=== PATIENT | male | born 1975 | race Caucasian/White ===

== ENCOUNTER 2016-06-22 03:11 | Emergency (ER) | payer OTHER ==
[2016-06-22] MEDS ORDERED: HYDROmorphONE/DILAUDID 1 MG/ML SYR IVP ONE (03:42)
[2016-06-22] MEDS ORDERED: ONDANSETRON 4 MG/2 ML VIAL IVP ONE (03:42)
[2016-06-22] MEDS ORDERED: NS 1,000 ML IV ONE (03:42)
[2016-06-22] MEDS ORDERED: ONDANSETRON 4 MG/2 ML VIAL ONE (03:43)
[2016-06-22] MEDS ORDERED: HYDROmorphONE/DILAUDID 1 MG/ML SYR ONE (03:43)
--- NOTE | 2016-06-22 03:45 | EDPHY ---
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 He complains of bilateral upper quadrant pain and epigastric pain that began yesterday then several episodes of vomiting tonight. Nonbloody no fever. No diarrhea. No chest pain or shortness of breath. He has had episodes of abdominal pain in the past without specific diagnosis. They have never been this bad however. REVIEW OF SYSTEMS: Constitutional: denies: chills, fever, recent illness, recent injury EENTM: denies: blurred vision, double vision, nose congestion Respiratory: denies: cough, shortness of breath Cardiac: denies: chest pain, irregular heart rate, lightheadedness, palpitations Gastrointestinal/Abdominal: See HPI Genitourinary: denies: dysuria, frequency, hematuria, pain Musculoskeletal: denies: joint pain, muscle pain Skin: denies: lesions, rash, jaundice, bruising Neurological: denies: headache, numbness, paresthesia, tingling, dizziness, weakness Hematologic/Lymphatic: denies: blood clots, easy bleeding, easy bruising Immunologic/allergic: denies: HIV/AIDS, transplant EXAM: GENERAL: Well-appearing, well-nourished and in no acute distress. HEAD: Atraumatic, normocephalic. EYES: Pupils equal round and reactive to light, extraocular movements intact, sclera anicteric, conjunctiva are normal. ENT: TMs normal, nares patent, oropharynx clear without exudates. Moist mucous membranes. NECK: Normal range of motion, supple without lymphadenopathy or JVD. LUNGS: Breath sounds clear to auscultation bilaterally and equal. No wheezes rales or rhonchi. HEART: Regular rate and rhythm without murmurs, rubs or gallops. ABDOMEN: Soft, nontender, normoactive bowel sounds. No guarding, no rebound. No masses appreciated. BACK: No CVA tenderness, no spinal tenderness, step-offs or deformities EXTREMITIES: Normal range of motion, no pitting or edema. No clubbing or cyanosis. NEUROLOGICAL: Cranial nerves II through XII grossly intact. Normal speech, normal gait. 5/5 strength, normal movement in all extremities, normal sensation PSYCH: Normal mood, normal affect. SKIN: Warm, dry, normal turgor, no visible rashes or lesions. Source: Patient Exam Limitations: No limitations - Medical/Surgical History Hx Asthma: No Hx Chronic Respiratory Disease: No Hx Diabetes: No Hx Cardiac Disease: No Hx Renal Disease: No Hx Cirrhosis: No Hx Alcoholism: No Hx HIV/AIDS: No Hx Splenectomy or Spleen Trauma: No Other PMH: chronic prostatitis - Family History Significant Family History: No pertinent family hx - Social History Smoking Status: Never smoked Alcohol Use: Sober Drug Use: None Constitutional: Initial Vital Signs Heart Rate 59 L 06/22/16 03:21 Respiratory Rate 18 06/22/16 03:21 Blood Pressure 117/60 06/22/16 03:21 O2 Sat (%) 98 06/22/16 03:21 O2 Delivery Mode Room Air O2 (L/minute) 2 Allergies/Adverse Reactions: No Known Allergies Allergy (Verified 06/22/16 03:24) Home Medications: Medication Instructions Recorded Aspirin EC [Aspirin EC 81 mg (*)] 81 mg PO DAILY 06/22/16 Multivitamins [Multivitamin (*)] 1 each PO DAILY 06/22/16 Zolpidem Tartrate [Ambien 10 mg] 10 mg PO HS PRN 06/22/16 Medical Decision Making - Diagnostics Imaging: Results: CT scan of the abdomen and pelvis was obtained. The results of the study are negative. The study was read by Dr. Breen. I viewed the images myself on the PACS system. ED Course/Re-evaluation: We discussed the abdominal CT and lab results. They are reassuring. The patient's abdominal exam remains nontender. He is eager to go home and declines further medication or observation. I will send him with take a Vicodin. He has Zofran at home already. He is happy with this plan and declines further workup or testing. We discussed indications for returning as well as recheck within 24 hours. Additional verbal discharge instructions given. Instructed to return within 24 hours if his pain does not resolve. Differential Diagnosis: Partial list of the Differential diagnosis considered include but were not limited to; gastroenteritis, peptic ulcer disease, biliary disease, liver disease, pancreatic disease, appendicitis, obstruction and although unlikely based on the history and physical exam, I also considered ischemia, volvulus, dissection, acute coronary disease. I discussed these differential diagnoses and the plan with the patient as well as the usual and expected course. The patient understands that the diagnosis is provisional and that in medicine we are not always correct and that further workup is often warranted. Usual and customary warnings were given. All of the patient's questions were answered. The patient was instructed to return to the emergency department should the symptoms at all worsen or return, otherwise to followup with the physician as we discussed. - Data Points Laboratory Results: Laboratory Results 06/22/16 03:55 06/22/16 03:55 Medications Given: Discontinued Medications Acetaminophen/Hydrocodone Bitart ([place] 5/325mg Prepack#6) 1 btl TAKEHOME EDNOW ONE Stop: 06/22/16 05:10 Last Admin: 06/22/16 05:41 Dose: 1 btl Hydromorphone HCl (Dilaudid) 1 mg IVP EDNOW ONE Stop: 06/22/16 03:43 Last Admin: 06/22/16 03:57 Dose: 1 mg Sodium Chloride (Ns) 1,000 mls @ 0 mls/hr IV ONCE ONE PRN Reason: Wide Open Stop: 06/22/16 03:43 Last Admin: 06/22/16 03:57 Dose: 1,000 mls Ketorolac Tromethamine (Toradol) 30 mg IVP EDNOW ONE Stop: 06/22/16 04:15 Last Admin: 06/22/16 04:26 Dose: 30 mg Ondansetron HCl (Zofran) 4 mg IVP EDNOW ONE Stop: 06/22/16 03:43 Last Admin: 06/22/16 03:58 Dose: 4 mg Departure - Departure Disposition: Home, Routine, Self-Care Clinical Impression: Abdominal pain Qualifiers: Abdominal location: generalized Qualifier Code: (R10.84) Generalized abdominal pain Condition: Fair Instructions: Hydrocodone/Acetaminophen (By mouth), Acute Abdominal Pain (ED) Referrals: Hemant Cano MD [Primary Care Provider] - As per Instructions
[2016-06-22 04:04] LABS: % IMMATURE GRANULYOCYTES 0.6 % (0.0-1.1); ADD DIFF? NO; ADD MORPH? NO; ADD SCAN? NO; ATYPICAL LYMPHOCYTE FLAG 10 (0-99); FRAGMENT RBC FLAG 0 (0-99); HEMATOCRIT 44.3 % (40.0-51.0); HEMOGLOBIN 15.7 g/dL (13.7-17.5); LEFT SHIFT FLG 0 (0-99); LIPEMIA HEMOLYSIS FLAG 90 (0-99); MEAN CELL HEMOGLOBIN 31.1 pg (27.9-34.1); MEAN CELL HEMOGLOBIN CONCENTR. 35.4 g/dL (32.4-36.7); MEAN CELL VOLUME 87.7 fL (81.5-99.8); MEAN PLATELET VOLUME 10.1 fL (8.7-11.7); PLATELET CLUMPS FLAG 0 (0-99); PLATELET COUNT 296 10^3/uL (150-400); RED BLOOD CELL COUNT 5.05 10^6/uL (4.40-6.38); RED CELL DISTRIBUTION WIDTH 12.8 % (11.5-15.2)
[2016-06-22] MEDS ORDERED: IOPAMIDOL (ISOVUE-300) 100 ML BTL IV ONE (04:06)
[2016-06-22 04:11] LABS: ALANINE AMINOTRANSFERASE 49 IU/L (21-72); ALBUMIN 4.7 g/dL (3.5-5.0); ALKALINE PHOSPHATASE 71 IU/L (38-126); ANION GAP 16 mEq/L (8-16); ASPARTATE AMINOTRANSFERASE 33 IU/L (17-59); BILIRUBIN,TOTAL 0.6 mg/dL (0.1-1.4); BILIRUBIN-CONJUGATED 0.2 mg/dL (0.0-0.5); BILIRUBIN-UNCONJUGATED 0.4 mg/dL (0.0-1.1); CALCIUM 9.7 mg/dL (8.5-10.4); CARBON DIOXIDE 24 mEq/l (22-31); CHLORIDE 103 mEq/L (97-110); CREATININE 0.9 mg/dL (0.7-1.3); GLOMERULAR FILTRATION RATE > 60; GLUCOSE 161 mg/dL (70-100); POTASSIUM 3.8 mEq/L (3.5-5.2); SODIUM 143 mEq/L (134-144); TOTAL PROTEIN 7.7 g/dL (6.3-8.2)
[2016-06-22] MEDS ORDERED: KETOROLAC 30 MG/1 ML SDV IVP ONE (04:14)
[2016-06-22] MEDS ORDERED: KETOROLAC 30 MG/1 ML SDV ONE (04:14)
[2016-06-22 04:28] VITALS: O2SAT 96
[2016-06-22] MEDS ORDERED: HYDROCOD/APAP 5/325 PREPACK#6 BTL TAKEHOME ONE (05:09)
[2016-06-22 05:23] LABS: COLOR PALE YELLOW; LEUKOCYTE ESTERASE,URINE NEGATIVE (NEGATIVE); NITRITE,URINE NEGATIVE (NEGATIVE)
[2016-06-22 06:00] VITALS: BP 118/68; PULSE 80; RESP 16; TEMP 97.9
--- NOTE | 2016-06-22 16:00 | CT ---
CT Scan of the Abdomen and Pelvis (With Contrast) Clinical Indications: Nausea and vomiting. Upper abdominal pain. Technique: 90 mL of Isovue 300 were given intravenously by machine power injection. Multidetector he lical CT imaging was performed from the diaphragm to the symphysis pubis. Dose reduction techniques w ere utilized. Findings: CT Abdomen: Lung bases are clear. Liver, spleen, pancreas, kidneys enhance normally. Gallbladder is n ormal by CT. Visualized bowel loops appear normal. No peritoneal free fluid or air. Dense calcifications are present within the lumen of the appendix compatible with appendicoliths. The appendix is also slightly distended at 11 mm size, without periappendiceal inflammatory changes. Min imal periappendiceal stranding is identified. Retrospective review of prior abdomen pelvis CT of 2006, demonstrates the presence of appendicoliths within the distal appendix, although the lum en of the appendix has progressively distended from prior study and the appendicoliths have matured i n their CT density and appearance. CT Pelvis: No free fluid or masses. Impression: Impression: 1. No etiology for a bladder abdominal pain is identified. 2. Progressive maturation and density of appendicoliths within the distal appendix, with increasing l uminal distention of the proximal appendix. Findings are of uncertain clinical significance. Surgical consultation may be of benefit in determining whether elective appendectomy is appropriate for this patient. Preliminary negative upper abdominal results called to Dr. Deng at 4:30 AM at the time of the exam ination. Follow-up call describing abnormal appendix findings with Ralph Chadwick PA-C, at 3:45 PM the same day.
--- NOTE | 2016-06-22 16:01 | EDPHY ---
ED Progress Note Narrative: I received a phone call from radiologist, Dr. Stefan Dumont today, 06/22/2016 at 3:55 p.m.. He was re-evaluating the patient's CT scan from last evening and noted multiple appendicoliths. I reviewed the patient's chart which indicates no focal tenderness. I have left the patient a voicemail after this conversation , recommend he contact the emergency department, 1) to see how he is feeling in and 2) to convey the radiographic findings of multiple appendicoliths on CT scan and the importance of close follow-up and having a low threshold for returning to the ER for revaluation as he may be at increased risk for appendicitis.
--- NOTE | 2016-06-22 16:39 | EDPHY ---
ED Progress Note Narrative: 4:38 p.m.: I spoke with the patient at this time when he called the emergency department. Inquired how he was feeling. Noted that his pain overall head decrease, described as a 3/10 pain however did appear to be more localized to the right lower quadrant. In conjunction with his diagnostic results which I discussed with him I did recommend he return to the emergency department this evening for re-evaluation.
== END 2016-06-22 06:00 | disposition home or self-care (01) ==
DX: R10.84 Generalized abdominal pain (principal); Z79.82 Long term (current) use of aspirin
CPT/HCPCS: 96374; J1170; J1885; J2405; Q9967

== ENCOUNTER 2016-06-22 17:52 | Observation (INO) | payer OTHER ==
[2016-06-22] MEDS ORDERED: NS 1,000 ML IV ONE (18:18)
[2016-06-22] MEDS ORDERED: ONDANSETRON 4 MG/2 ML VIAL IVP ONE (18:18)
--- NOTE | 2016-06-22 18:25 | EDPHY ---
H & P Stated Complaint: RLQ abd pain HPI/ROS: CHIEF COMPLAINT: Right lower quadrant abdominal pain HISTORY OF PRESENT ILLNESS: right-sided abdominal pain that started yesterday. This was primarily periumbilical but did radiate into the right side. Mild-to -moderate yesterday. Progressively worsened throughout the day. Associated with nausea but no vomiting. No fever or chills. No bowel changes. No bloody stools or emesis recently. Seen here at this facility last night with laboratory studies, IV fluid and pain medication. Was feeling much better with treatment. CT scan was obtained that was equivocal, but today after repeat evaluation by the radiologist there was question of a possible early appendicitis. He was contacted by our staff instructed to return here for repeat visit. Since that time, he has had ongoing pain. It is moderate to severe. It is now localized in the right lower quadrant. Nausea but no vomiting. No fever or chills. worse with any palpation or movement. Improved with rest pain PREVIOUS ABDOMINAL SURGERIES/DIAGNOSES: no formal diagnosis. Questionable IBS. No surgeries. NPO: 2 hours REVIEW OF SYSTEMS: Ten systems reviewed and are negative unless otherwise noted in the HPI EXAMINATION: General Appearance: Alert, no distress Head: normocephalic, atraumatic Eyes: Pupils equal and round, no conjunctival pallor or injection ENT, Mouth: Mucous membranes moist . uvula midline. No lesions. Neck: Normal inspection, supple, non-tender Respiratory: Lungs are clear to auscultation Cardiovascular: Regular rate and rhythm. No murmur. Pulses intact distally Gastrointestinal: Abdomen But moderate tenderness in right lower quadrant. There is guarding the right lower quadrant. Positive Rovsing. Positive McBurney's. No tympany or rigidity. Borderline peritonitic. No CVA tenderness Back: non-tender, no bony abnormalities Neurological: A&O, nonfocal, strength symmetric 5/5 in all limbs. Skin: Warm and dry, no rash Extremities: Nontender, no pedal edema Psychiatric: Mood and affect normal DIFFERENTIAL DIAGNOSES: Including but not limited to Acute appendicitis, early appendicitis, colitis, diverticulitis, enteritis MDM: 6:24 p.m. abdominal pain of just over 24 hours. It was originally periumbilical and across the abdomen, now localizing to the right lower quadrant. He is guarding on examination. He is afebrile here. His pain is not improved since discharge home. CT scan last night was equivocal for a possible appendicitis. Exam is consistent with the possibility of this, thus I have paged General surgery for consultation. We are obtaining laboratory studies, provided IV fluid and pain medication at this time. 6:45pm I have discussed the case with Dr. Massey. The patient to his service for a laparoscopic appendectomy later this evening. He is going to the OR right now with another patient, but he will see the patient after this surgery. He has agreed to admit the patient observation to his service. Have discussed this with the patient he is comfortable with this plan. He is resting comfortably with minimal pain. He is made aware that he will be admitted to the surgeon and be seen later this evening before any surgical intervention. SUPERVISION: Patient was evaluated in conjunction with the supervising physician. Please see their note for details. Source: Patient Exam Limitations: No limitations - Personal History Current Tetanus/Diphtheria Vaccine: Yes Current Tetanus Diphtheria and Acellular Pertussis (TDAP): Yes - Medical/Surgical History Hx Asthma: No Hx Chronic Respiratory Disease: No Hx Diabetes: No Hx Cardiac Disease: No Hx Renal Disease: No Hx Cirrhosis: No Hx Alcoholism: No Hx HIV/AIDS: No Hx Splenectomy or Spleen Trauma: No Other PMH: chronic prostatitis - Social History Smoking Status: Never smoked Constitutional: Initial Vital Signs Temperature (C) 98.1 F 06/22/16 17:54 Heart Rate 99 06/22/16 17:54 Respiratory Rate 16 06/22/16 17:54 Blood Pressure 114/76 06/22/16 17:54 O2 Sat (%) 96 06/22/16 17:54 O2 Delivery Mode Room Air Allergies/Adverse Reactions: No Known Allergies Allergy (Verified 06/22/16 03:24) Home Medications: Medication Instructions Recorded NO HOME MEDS 08/16/09 Hydrocodone/APAP 5/325 [[place] 1 - 2 tab PO Q4H PRN #14 tab 06/22/16 5/325 (RX)] Medical Decision Making - Data Points Laboratory Results: Laboratory Results 06/22/16 18:20 06/22/16 18:20 WBC 15.21 H 10^3/uL (3.80-9.50) RBC 4.94 10^6/uL (4.40-6.38) Hgb 15.5 g/dL (13.7-17.5) Hct 43.6 % (40.0-51.0) MCV 88.3 fL (81.5-99.8) MCH 31.4 pg (27.9-34.1) MCHC 35.6 g/dL (32.4-36.7) RDW 13.1 % (11.5-15.2) Plt Count 264 10^3/uL (150-400) MPV 10.0 fL (8.7-11.7) Neut % (Auto) 81.8 H % (39.3-74.2) Lymph % (Auto) 10.0 L % (15.0-45.0) [place] % (Auto) 7.3 % (4.5-13.0) Eos % (Auto) 0.3 L % (0.6-7.6) Baso % (Auto) 0.3 % (0.3-1.7) Nucleat RBC Rel Count 0.0 % (0.0-0.2) Absolute Neuts (auto) 12.43 H 10^3/uL (1.70-6.50) Absolute Lymphs (auto) 1.52 10^3/uL (1.00-3.00) Absolute Monos (auto) 1.11 H 10^3/uL (0.30-0.80) Absolute Eos (auto) 0.05 10^3/uL (0.03-0.40) Absolute Basos (auto) 0.05 10^3/uL (0.02-0.10) Absolute Nucleated RBC 0.00 10^3/uL (0-0.01) Immature Gran % 0.3 % (0.0-1.1) Immature Gran # 0.05 10^3/uL (0.00-0.10) Sodium Pending Potassium Pending Chloride Pending Carbon Dioxide Pending Anion Gap Pending BUN Pending Creatinine Pending Estimated GFR Pending Glucose Pending Calcium Pending Total Bilirubin Pending Conjugated Bilirubin Pending Unconjugated Bilirubin Pending AST Pending ALT Pending Alkaline Phosphatase Pending Total Protein Pending Albumin Pending Lipase Pending Medications Given: Discontinued Medications Sodium Chloride (Ns) 1,000 mls @ 0 mls/hr IV ONCE ONE PRN Reason: Wide Open Stop: 06/22/16 18:19 Last Admin: 06/22/16 18:29 Dose: 1,000 mls Morphine Sulfate (Morphine) 6 mg IVP EDNOW ONE Stop: 06/22/16 18:19 Last Admin: 06/22/16 18:29 Dose: Not Given Ondansetron HCl (Zofran) 4 mg IVP EDNOW ONE Stop: 06/22/16 18:19 Last Admin: 06/22/16 18:29 Dose: Not Given Departure - Departure Disposition: [facility] Inpatient Acute Clinical Impression: Acute abdominal pain in right lower quadrant Leukocytosis Qualifiers: Leukocytosis type: other Qualifier Code: (D72.828) Other elevated white blood cell count Acute appendicitis Qualifiers: Acute appendicitis type: with localized peritonitis Qualifier Code: (K35.3) Acute appendicitis with localized peritonitis Condition: Good Referrals: Hemant Cano MD [Primary Care Provider] - As per Instructions
[2016-06-22 18:33] LABS: % IMMATURE GRANULYOCYTES 0.3 % (0.0-1.1); ABSOLUTE IMMATURE GRANULOCYTES 0.05 10^3/uL (0.00-0.10); ADD DIFF? NO; ADD MORPH? NO; ADD SCAN? NO; ATYPICAL LYMPHOCYTE FLAG 10 (0-99); FRAGMENT RBC FLAG 0 (0-99); HEMATOCRIT 43.6 % (40.0-51.0); HEMOGLOBIN 15.5 g/dL (13.7-17.5); LEFT SHIFT FLG 0 (0-99); LIPEMIA HEMOLYSIS FLAG 90 (0-99); MEAN CELL HEMOGLOBIN 31.4 pg (27.9-34.1); MEAN CELL HEMOGLOBIN CONCENTR. 35.6 g/dL (32.4-36.7); MEAN CELL VOLUME 88.3 fL (81.5-99.8); PLATELET CLUMPS FLAG 0 (0-99); PLATELET COUNT 264 10^3/uL (150-400); RED BLOOD CELL COUNT 4.94 10^6/uL (4.40-6.38); RED CELL DISTRIBUTION WIDTH 13.1 % (11.5-15.2)
[2016-06-22 18:53] LABS: ALANINE AMINOTRANSFERASE 38 IU/L (21-72); ALBUMIN 4.4 g/dL (3.5-5.0); ALKALINE PHOSPHATASE 57 IU/L (38-126); ANION GAP 13 mEq/L (8-16); ASPARTATE AMINOTRANSFERASE 30 IU/L (17-59); BILIRUBIN,TOTAL 1.1 mg/dL (0.1-1.4); BILIRUBIN-CONJUGATED 0.2 mg/dL (0.0-0.5); BILIRUBIN-UNCONJUGATED 0.9 mg/dL (0.0-1.1); CALCIUM 9.5 mg/dL (8.5-10.4); CARBON DIOXIDE 27 mEq/l (22-31); CHLORIDE 102 mEq/L (97-110); CREATININE 0.8 mg/dL (0.7-1.3); GLOMERULAR FILTRATION RATE > 60; GLUCOSE 92 mg/dL (70-100); POTASSIUM 3.6 mEq/L (3.5-5.2); SODIUM 142 mEq/L (134-144); TOTAL PROTEIN 7.6 g/dL (6.3-8.2)
--- NOTE | 2016-06-22 19:06 | PDCONSULT ---
Nurse Ortho Note: I was contacted by Kj Jeter PA-C to consult on patient Wayne Simmons who returned today with worsening abd pain and RLQ tenderness. He has numerous appendicoliths on CT with a dilated appendix and leukocytosis. I recommended he be admitted for IV antibiotics and prep for surgery. I will be in the OR and will see him when I get out to confirm his exam findings and discuss appendectomy with him. Adrian Massey MD, FACS
[2016-06-22] MEDS ORDERED: LR 1,000 ML IV SCH (20:30)
[2016-06-22] MEDS ORDERED: ONDANSETRON 4 MG/2 ML VIAL IVP PRN (20:31)
--- NOTE | 2016-06-22 20:40 | PDGENHP ---
History and Physical History and Physical: CC: abd pain HPI: 41 y/o male with one day hx of abd pain, nausea/vomiting. Surgical consult requested after initial discharge home and return this evening. PMH: surgery:none meds: prn Ambien for travel NKDA non-smoker SH: with 2 children ROS: has had prior attacks as far back as [address], upper and lower endoscopy prior prostatitis 2011 FH: NC PE: T 36.8 P 60 R 14 pleasant young man in mild distress - icterus/adenopathy lungs clear CVS: RRR Abd: soft/hypoactive bowel sounds, tender to percussion and palpation right lowerr quadrant, Rovsing's sign + wbc >15K CT reviewed Imp: Acute on chronic appendicitis Rec: IV antibiotics/fluids lap appendectomy We discussed the procedure, risks, expected recovery and alternative of antibiotic therapy alone (which I did not recommend) He will be admitted to the med-surg haas awaiting an available OR Adrian Massey MD, FACS
[2016-06-22] MEDS: ERTAPENEM 1 GM in NS 100 ML IV SCH (21:53)
[2016-06-22] MEDS ORDERED: BUPIVACAINE 0.25% 30 ML SDV ONE (22:35)
[2016-06-23] MEDS ORDERED: MIDAZOLAM 2 MG/2 ML VIAL ONE (00:23)
[2016-06-23] MEDS ORDERED: SCOPOLAMINE HYDROBROMIDE 1.5 MG PATCH TD ONE (00:34)
[2016-06-23] MEDS ORDERED: PROPOFOL 200 MG/20 ML VIAL ONE (00:43)
[2016-06-23] MEDS ORDERED: fentaNYL 250 MCG/5 ML INJ ONE (00:43)
[2016-06-23] MEDS ORDERED: DEXAMETHASONE 4 MG/ML VIAL ONE (00:43)
[2016-06-23] MEDS ORDERED: ROCURONIUM 50 MG/5 ML VIAL ONE (00:43)
--- NOTE | 2016-06-23 01:47 | POSTOPPROG ---
Post Op Note Date of Operation: 06/23/16 Surgeon: Devang Massey (, FACS) Anesthesiologist: Will Pappas MD Anesthesia: GET(General Endotracheal) Pre-op Diagnosis: acute appendicitis Post-op Diagnosis: same Procedure: lap appendectomy Findings: acute suppurative appendicitis Inf/Abcess present in the surg proc area at time of surgery?: Yes Depth: Organ Space EBL: Minimal Complications: none Specimen(s): appendix
[2016-06-23] MEDS ORDERED: NON-FORMULARY NEW DRUG (Zolpidem Tartrate [Ambien 10 Mg] 10 MG) PO PRN (01:50)
[2016-06-23] MEDS ORDERED: ZOLPIDEM TARTRATE 5 MG TAB PO PRN (01:56)
[2016-06-23 05:19] VITALS: RESP 16
[2016-06-23 05:45] LABS: ALANINE AMINOTRANSFERASE 34 IU/L (21-72); ALBUMIN 3.7 g/dL (3.5-5.0); ALKALINE PHOSPHATASE 51 IU/L (38-126); ANION GAP 8 mEq/L (8-16); ASPARTATE AMINOTRANSFERASE 23 IU/L (17-59); BILIRUBIN,TOTAL 0.9 mg/dL (0.1-1.4); CALCIUM 8.6 mg/dL (8.5-10.4); CARBON DIOXIDE 26 mEq/l (22-31); CHLORIDE 106 mEq/L (97-110); CREATININE 0.8 mg/dL (0.7-1.3); GLOMERULAR FILTRATION RATE > 60; GLUCOSE 113 mg/dL (70-100); POTASSIUM 4.3 mEq/L (3.5-5.2); SODIUM 140 mEq/L (134-144); TOTAL PROTEIN 6.3 g/dL (6.3-8.2)
[2016-06-23] MEDS: ERTAPENEM 1 GM in NS 100 ML IV SCH (07:41)
[2016-06-23] MEDS ORDERED: IBUPROFEN 600 MG TAB PO PRN (08:47)
[2016-06-23] MEDS ORDERED: ASPIRIN EC 81 MG TAB PO SCH (09:00)
--- NOTE | 2016-06-23 12:47 | GOP ---
[f rep st] OPERATIVE REPORT DATE OF OPERATION: 06/22/2016 SURGEON: Devang Massey MD, FACS ANESTHESIA: General endotracheal. ANESTHESIOLOGIST: Lino Pappas MD PREOPERATIVE DIAGNOSIS: Acute appendicitis. POSTOPERATIVE DIAGNOSIS: Acute appendicitis. PROCEDURE PERFORMED: Laparoscopic appendectomy. FINDINGS: Acute retrocecal appendicitis without laine perforation or gangrene. ESTIMATED BLOOD LOSS: 10 cc. DESCRIPTION OF PROCEDURE: After informed consent was obtained, the patient was brought to the operating room, placed under general anesthesia. The abdomen was prepped and draped in the usual fashion. Before proceeding, a time-out and identification of the patient was performed. 0.25% Marcaine was used to infiltrate all incision sites. A longitudinal incision was made through the umbilicus and carried through the skin and subcutaneous tissues. Ventral traction was applied to the abdominal wall with a penetrating towel clamp, and a Veress needle was introduced into the peritoneal cavity. Position was confirmed by saline infusion. A pneumoperitoneum was established with CO2 gas to a pressure of 15 mmHg. The Veress needle was withdrawn and replaced with a 5 mm bladeless trocar. A zero- degree scope was introduced, and the peritoneal cavity was visualized. Additional 5 mm port was placed in the suprapubic position under direct visualization, and a left lower quadrant 12 mm port was established. This allowed introduction of atraumatic grasping forceps. The cecum was rotated medially. The appendix was retrieved from its retrocecal position, and the mesoappendix was taken down with the Harmonic scalpel. The appendix was from the cecum with a single firing of the IVORY stapler and retrieved through the left lower quadrant port site with an Endopouch. Because of the moderate degree of purulence around the appendix, I elected to irrigate the pericolic gutter and pelvis. This was performed until the effluent was clear. Hemostasis appeared secure. The left lower quadrant port incision was closed with a transfascial closure needle and 0 Vicryl suture. The pneumoperitoneum was evacuated. The remaining ports were removed. Subcutaneous tissues were closed with 3-0 Monocryl suture. Skin was closed with 4-0 Monocryl suture in a subcuticular fashion. Mastisol, Steri-Strips, and sterile dressings were applied. The patient was returned, extubated, to the recovery room in satisfactory condition. Needle, sponge, and instrument count were correct. COMPLICATIONS: None. /[id number]/MODL MTDD
[2016-06-23 12:56] VITALS: BP 106/69; PULSE 61; TEMP 98.4; O2SAT 93
[2016-06-23] MEDS ORDERED: SENNOSIDES/DOCUSATE SODIUM TAB PO SCH (14:00)
--- NOTE | 2016-06-23 14:13 | PDDCSUM ---
Discharge Summary Discharge Summary: DOA 06/22/16 DOD 06/23/16 DC dx: appendicitis surgery: lap appendectomy 06/23 Coursed: uneventful lap appendectomy for acute suppurative appendicitis. Pt felt better post op and received a second dose of Invanz and was then discharged home tolerating a soft diet, afebrile and ambulatory. His surgical sites were uncomplicated. We discussed activity, diet, wound care and follow up. DC meds: [place] 5/325 #20 Ibuprofen 600mg #30 Senokot S #30 he will continue his prior meds including: ASA 81 mg/day Ambien 10 mg/PM prn S MD Bryson, FACS
== END 2016-06-23 15:14 | disposition home or self-care (01) ==
LOC: F3E 20:40
PROVIDERS: ADMIT Surgery; ATTEND Surgery
PROC: 0DTJ4ZZ Resection of Appendix, Percutaneous Endoscopic Approach (ICD-10-PCS; principal; 2016-06-22 23:00)
DX: K35.80 Unspecified acute appendicitis (principal)
CPT/HCPCS: 44970; 96360; 99285; G0378; J1100; J1335; J2250; J2405; J2704; J3010